=== PATIENT | male | born 1970 | race Caucasian/White ===

== ENCOUNTER 2019-08-16 08:45 | Emergency (ER) | payer BC ==
[2019-08-16 08:54] VITALS: BP 132/84; PULSE 84; TEMP 97.4; BMI 22.7
[2019-08-16] MEDS ORDERED: ONDANSETRON *ODT* 4 MG TABLET SL ONE ×2 (09:09→09:54)
[2019-08-16] MEDS ORDERED: MAG HYDROX/AL HYDROX/SIMETH 30 ML UNIT-DOSE CUP PO ONE (09:09)
[2019-08-16] MEDS ORDERED: LIDOCAINE VISCOUS 2% ORAL/TOP 20 ML UNIT-DOSE CUP MM ONE (09:11)
--- NOTE | 2019-08-16 09:11 | PDOC ---
History of Present Illness - General Chief Complaint: Nausea/Vomiting Stated Complaint: nausea Time Seen by Provider: 08/16/19 09:08 History Source: Patient Exam Limitations: No Limitations - History of Present Illness Initial Comments: 08/16/19 09:09 HPI 49 YOM with h/o COPD s/p vats and GERD presenting with intermittent nausea x 3 days. pt states nausea associated with reflux coming up into his chest and throat. he tried PPI over the last several days, with improvement. he had thanksgiving meal 2 days ago, ate shrimp and cocktail sauce, turkey and fatty/greasy foods. no alcohol intake at that time. today nausea; tolerating fluids and jello. no vomiting or bilious/bloody emesis. has had EGD and colonoscopy >4 years ago, unremarkable. poorly compliant with diet restrictions his doctor has previously advised last PMD check 2 weeks ago, normal workup Denies fever, chills, chest pain, SOB, palpitation, dizziness, weakness, V, D, abdominal pain, bladder and bowel problems, focal weakness/paresthesias, leg swelling/pain, rash. No sick contacts or travel. +suspicious food intake ( Thanksgiving meal) Allergies: None Past Medical History: COPD, GERD PSH: VATS Social history: Lives with family. +vaping/ tobacco, no ETOH or drug use. Meds: as documented in EMR Family history: noncontributory PMD: [facility] Review of systems Constitutional: no fevers or chills. No weakness HEENT: no headache or dizziness. No congestion. CVS: no cp or syncope. Resp: no sob. No cough. Gastrointestinal: no abdominal pain, vomiting, diarrhea. no constipation. no bloody stools. +nausea. Genitourinary: no urinary sx, hematuria. MUSCULOSKELETAL: No joint pain and swelling. No neck or back pain. SKIN: no redness or skin changes, no discharge, no rash. No wounds. Hematologic: no easy bruising/bleeding. NEUROLOGIC: No headache, dizziness, LOC or altered mental status. No weakness, numbness or tingling. Psych: no anxiety or depression Allergic/Immunologic: no allergies All other systems reviewed and negative, or as documented in HPI. Physical exam General: Well appearing, awake and alert, NAD. HEENT: NCAT, PERRL, EOMI, clear conjunctiva, anicteric, moist mucus membranes, clear oropharynx, no oral lesions.. Neck: neck supple, FROM Resp: CTAB, normal and even respirations, no respiratory distress CVS: RRR, no murmurs, 2+ peripheral pulses throughout, no peripheral edema Abdomen: soft, NTND, no rebound or guarding. Back: nontender, normal inspection and ROM MSK: no edema, FLOREZ x4, ROM intact. No clubbing or cyanosis. normal bulk and tone. Extremities: no calf tenderness Neuro: alert, oriented appropriately; no focal neurologic deficits Psych: Calm and cooperative Skin: warm and well perfused, cap refill <2 sec, normal color, no rash or skin discoloration. 08/16/19 09:11 08/16/19 09:12 08/16/19 09:32 Past History - Past Medical History Allergies/Adverse Reactions: Allergies Allergy/AdvReac Type Severity Reaction Status Date / Time No Known Allergies Allergy Verified 02/17/16 22:49 Home Medications: Ambulatory Orders Tiotropium [place] [Spiriva] 1 inh IH DAILY 09/28/12 Mag Hydrox/Al Hydrox/Simeth [Mylanta *Suspension*] 30 ml PO Q6H PRN #500 ml 10/04 Omeprazole Magnesium [Prilosec Otc] 20 mg PO DAILY 08/16/19 Ondansetron [Zofran *Odt*] 4 mg SL TID PRN #9 od.tablet 08/16/19 Pantoprazole Sodium [Protonix -] 20 mg PO DAILY 08/16/19 Asthma: Yes COPD: No Other medical history: collapsed lung, upset stomach all his life - Psycho Social/Smoking Cessation Hx Smoking Status: No Smoking History: Former smoker Have you smoked in the past 12 months: No Number of Cigarettes Smoked Daily: 0 If you are a former smoker, when did you quit?: 4 yrs Cigars Per Day: 0 Information on smoking cessation initiated: No Hx Alcohol Use: No Drug/Substance Use Hx: No *Physical Exam - Vital Signs Last Vital Signs Temp Pulse Resp BP Pulse Ox 97.4 F L 84 20 132/84 100 08/16/19 08:46 08/16/19 08:46 08/16/19 08:46 08/16/19 08:46 08/16/19 08:46 Medical Decision Making - Medical Decision Making 08/16/19 09:11 Vital Signs Temperature 97.4 F L 08/16/19 08:46 Pulse Rate 84 08/16/19 08:46 Respiratory Rate 20 08/16/19 08:46 Blood Pressure 132/84 08/16/19 08:46 O2 Sat by Pulse Oximetry (%) 100 08/16/19 08:46 Vital signs reviewed within normal limits. Patient is well-appearing, speaking full sentences. No chest pain shortness of breath or abdominal pain, exam is benign. Patient only endorses nausea and he has had history of GERD and reflux. Will trial viscous lidocaine, Maalox and Zofran and reassess. No imaging or labs indicated at this time. Doubt anything cardiac as no cp or sob. has had EGD/colonoscopy/GI eval as outpatient also recent PMD check up 2 weeks ago and unremarkable per patient. 08/16/19 10:00 on clinical reeval feels improved and wishes to be DC'd. panfilo PO intake, no abdominal tenderness, no peritoneal findings. no infectious sx. no cp or sob or neuro complaints diet modifications as discussed for GERD care, zofran rx tid prn for the nausea instructions on hydration and vaping cessation. Pt to be discharged in stable condition. Patient and family made aware of clinical impression, treatment recommendations and disposition plan, return precautions discussed (including but not limited to new or persistent/worsening symptoms, pain, fevers, or signs of infection, chest pain, respiratory distress , inability to tolerate oral intake, dehydration, syncope, or neurologic changes ). Follow up with PMD and/or GI specialist as recommended, follow up information provided, take medications as instructed for duration of time. continue with supportive care, avoid triggers and precipitants. All questions answered to patient's satisfaction and expressed understanding and comfort with this. At the time of discharge, the patient is alert, clinically improved, tolerating po and verbalizes understanding of instructions, satisfied with the care received and felt comfortable with the plan. Patient does not suffer from an acute life-threatening medical condition at this time and is safe for outpatient follow-up. 08/16/19 09:35 Discharge - Discharge Information Problems reviewed: Yes Clinical Impression/Diagnosis: Nausea Condition: Improved Disposition: HOME - Admission No - Additional Discharge Information Prescriptions: Mag Hydrox/Al Hydrox/Simeth [Mylanta *Suspension*] 30 ml PO Q6H PRN #500 ml PRN Reason: heartburn Ondansetron [Zofran *Odt*] 4 mg SL TID PRN #9 od.tablet PRN Reason: Nausea - Follow up/Referral Referrals: Perry Pro MD [Staff Physician] - - Patient Discharge Instructions Patient Printed Discharge Instructions: DI for Nausea -- Adult, GERD Diet Additional Instructions: Take zofran three times a day as needed for nausea You may also take prilosec or protonix (PPI) daily and maalox or mylanta three to four times a day with your meals for the heart burn symptoms Avoid spicy or fatty foods. Drink plenty of fluids, soups and broth. Important to stay hydrated. Avoid triggers that could precipitate the abdominal pain, nausea and vomiting. This could be reflux, gastritis or viral infection that should self resolve with time Follow up with a check processing clerk and primary doctor if symptoms persist. - Post Discharge Activity Work/Back to School Note: Back to Work
[2019-08-16] MEDS ORDERED: LIDOCAINE VISCOUS 2% ORAL/TOP 20 ML UNIT-DOSE CUP ONE (09:12)
[2019-08-16] MEDS ORDERED: MAG HYDROX/AL HYDROX/SIMETH 30 ML UNIT-DOSE CUP ONE (09:12)
[2019-08-16] MEDS ORDERED: ONDANSETRON *ODT* 4 MG TABLET ONE ×2 (09:12→09:55)
== END 2019-08-16 10:17 | disposition home or self-care (01) ==
LOC: FER 08:45
DX: R11.0 Nausea (principal); Z87.891 Personal history of nicotine dependence; J45.909 Unspecified asthma, uncomplicated; K92.9 Disease of digestive system, unspecified
CPT/HCPCS: 99281-25; Q0162

== ENCOUNTER 2019-11-17 08:15 | Day surgery (SDC) | payer BC ==
[2019-11-16 11:35] VITALS: BMI 23.5
[2019-11-17 10:18] VITALS: TEMP 98.2
[2019-11-17 10:24] VITALS: BP 106/77; PULSE 67
--- NOTE | 2019-11-18 14:46 | PATH ---
Surgical Pathology Report Patient Name: JULIANO DIANE [facility]. Rec. #: [id number] /Age/Gender: 1970 (Age: 49) / M Account: [id number] Location: U-ENDOSCOPY Taken: 11/17/2019 Received: 11/17/2019 Reported: 11/18/2019 Physicians: Sal Marquez D.O. Specimen(s) Received A: DUODENAL POLYP B: ANGULARIS AND BODY Clinical History Nausea Postoperative diagnosis: Duodenal polyp, possible Barber's Final Diagnosis A. DUODENAL POLYP, BIOPSY: DUODENAL MUCOSA SHOWING FOCAL SHAY'S GLAND IN THE LAMINA PROPRIA. THE ARCHITECTURE OF THE VILLI APPEARS NORMAL. NO HISTOLOGIC EVIDENCE OF INTRAEPITHELIAL LYMPHOCYTOSIS. B. ANGULARIS AND BODY, BIOPSY: GASTRIC MUCOSA WITH MILD CHRONIC GASTRITIS. IMMUNOSTAIN FOR H. PYLORI IS NEGATIVE. NEGATIVE FOR INTESTINAL METAPLASIA. Electronically Signed Veronica Spivey M.D. Gross Description A. Received in formalin, labeled "biopsy duodenal polyp" are 3 menendez, irregular portions of soft tissue ranging from 0.1-0.2 cm. in greatest dimension. The specimens are submitted in toto in one cassette. B. Received in formalin, labeled "biopsy angularis and body" are 4 menendez, irregular portions of soft tissue ranging from 0.2-0.4 cm. in greatest dimension. The specimens are submitted in toto in one cassette. 11/17/2019 saudi11/17/2019
== END 2019-11-17 10:33 | disposition home or self-care (01) ==
LOC: JASU-ENDO 08:15
PROVIDERS: ATTEND Internal Medicine Gastroenterology
PROC: 0DB78ZX Excision of Stomach, Pylorus, Via Natural or Artificial Opening Endoscopic, Diagnostic (ICD-10-PCS; 2019-11-17)
PROC: 0DB68ZX Excision of Stomach, Via Natural or Artificial Opening Endoscopic, Diagnostic (ICD-10-PCS; 2019-11-17)
PROC: 0DB98ZX Excision of Duodenum, Via Natural or Artificial Opening Endoscopic, Diagnostic (ICD-10-PCS; principal; 2019-11-17 09:00)
DX: K29.50 Unspecified chronic gastritis without bleeding (principal); K31.7 Polyp of stomach and duodenum; K44.9 Diaphragmatic hernia without obstruction or gangrene; R11.0 Nausea
CPT/HCPCS: 88305-TC; 88342-TC